=== PATIENT | female | born 1935 | race Caucasian/White ===

== ENCOUNTER → 2016-04-04 | Outpatient (CLI) | payer MEDICARE, BC ==
[~2016-04-04] MED LIST: ALPR0.5T3 PO; AMLO5TAB96 PO; TOPR25TA2 PO; ZOLP10TA3 OR
[2016-04-04 13:38] LABS: ANION GAP 6 MEQ/L (5-15); AST (GOT) 10 U/L (15-37); BICARBONATE 31.4 MEQ/L (21.0-32.0); BLOOD UREA NITROGEN 23 MG/DL (7-18); CHLORIDE 107 MEQ/L (98-107); GLOMERULAR FILTRATION RATE 58 ML/MIN (>89); GLUCOSE,FASTING 144 MG/DL (74-99); POTASSIUM 4.8 MEQ/L (3.5-5.1); SODIUM (NA) 144 MEQ/L (136-145)
[2016-04-04 13:49] LABS: ALKALINE PHOSPHATASE 72 U/L (45-117); ALT (GPT) 16 U/L (10-53); HDL CHOLESTEROL 48.7 MG/DL (40.0-60.0); LDL CHOLESTEROL 76 MG/DL (0-99); TOTAL BILIRUBIN ADULT 0.5 MG/DL (0.2-1.0)
[2016-04-04 13:57] LABS: HEMOGLOBIN A1a 1.1 %; HEMOGLOBIN A1b 1.8 %; HEMOGLOBIN LA1C 2.2 %; HEMOGLOBIN P3 4.1 %
== END ==
LOC: PLAB 09:45
PROVIDERS: ATTEND Internal Medicine Interventional Cardiology
DX: I11.9 Hypertensive heart disease without heart failure (principal); R53.83 Other fatigue; R94.31 Abnormal electrocardiogram [ECG] [EKG]; E11.9 Type 2 diabetes mellitus without complications; E78.5 Hyperlipidemia, unspecified; E03.9 Hypothyroidism, unspecified
CPT/HCPCS: 36415; 80053; 80061; 83036; 84443

== ENCOUNTER → 2016-12-19 | Outpatient (CLI) | payer MEDICARE, BC ==
[2016-12-19 13:53] LABS: ANION GAP 9 MEQ/L (5-15); AST (GOT) 13 U/L (15-37); BICARBONATE 27.4 MEQ/L (21.0-32.0); BLOOD UREA NITROGEN 21 MG/DL (7-18); CHLORIDE 108 MEQ/L (98-107); GLOMERULAR FILTRATION RATE 72 ML/MIN (>89); GLUCOSE,FASTING 132 MG/DL (74-99); SODIUM (NA) 144 MEQ/L (136-145)
[2016-12-19 14:07] LABS: MICRO ALBUMIN RANDOM URINE RAW 6.6 MG/L (0.0-30.0)
[2016-12-19 14:08] LABS: ALKALINE PHOSPHATASE 74 U/L (45-117); ALT (GPT) 16 U/L (10-53); HDL CHOLESTEROL 50.3 MG/DL (40.0-60.0); LDL CHOLESTEROL 83 MG/DL (0-99); TOTAL BILIRUBIN ADULT 0.5 MG/DL (0.2-1.0)
[2016-12-19 17:39] LABS: HEMOGLOBIN A1a 1.2 %; HEMOGLOBIN Ao 83.7 %; HEMOGLOBIN LA1C 2.1 %; HEMOGLOBIN P3 4.1 %
== END ==
LOC: PLAB 09:13
PROVIDERS: ATTEND Family Medicine
DX: E11.9 Type 2 diabetes mellitus without complications (principal); E78.5 Hyperlipidemia, unspecified; I11.9 Hypertensive heart disease without heart failure; E03.9 Hypothyroidism, unspecified
CPT/HCPCS: 36415; 80053; 80061; 82043; 83036; 84443

== ENCOUNTER → 2017-04-17 | Outpatient (CLI) | payer MEDICARE, BC ==
[2017-04-17 12:11] LABS: ALBUMIN 3.6 GM/DL (3.4-5.0); AST (GOT) 14 U/L (15-37); BICARBONATE 27.8 MEQ/L (21.0-32.0); BLOOD UREA NITROGEN 25 MG/DL (7-18); CALCIUM 9.2 MG/DL (8.5-10.1); CHLORIDE 106 MEQ/L (98-107); CREATININE 0.89 MG/DL (0.50-1.00); GLOMERULAR FILTRATION RATE 61 ML/MIN (>89); GLUCOSE,FASTING 127 MG/DL (74-99); SODIUM (NA) 142 MEQ/L (136-145)
[2017-04-17 12:12] LABS: CHOLESTEROL 135 MG/DL (120-200)
[2017-04-17 12:16] LABS: ALKALINE PHOSPHATASE 76 U/L (45-117); ALT (GPT) 14 U/L (10-53); CHOLESTEROL/ HDL RATIO 2.83 RATIO; HDL CHOLESTEROL 47.6 MG/DL (40.0-60.0); LDL CHOLESTEROL 59 MG/DL (0-99); TOTAL BILIRUBIN ADULT 0.5 MG/DL (0.2-1.0); TOTAL PROTEIN 6.8 GM/DL (6.4-8.2); TRIGLYCERIDES 144 MG/DL (42-150)
[2017-04-17 17:24] LABS: HEMOGLOBIN A1C 6.4 % (4.3-6.0)
== END ==
LOC: PLAB 09:04
PROVIDERS: ATTEND Family Medicine
DX: E11.9 Type 2 diabetes mellitus without complications (principal); E78.5 Hyperlipidemia, unspecified; I11.9 Hypertensive heart disease without heart failure
CPT/HCPCS: 36415; 80053; 80061; 83036